=== PATIENT | male | born 1970 | race Caucasian/White ===

== ENCOUNTER 2020-10-29 15:18 | Inpatient (IN) | payer MEDICAID, OTHER ==
[~2020-10-29] VITALS: Ht 185.4 cm; Wt 160.4 kg
--- NOTE | 2020-10-29 15:38 | NUR ---
Pt able to speak in complete sentences. States he flew to [place] from [place]; "a long day of travel". Pt a-febrile but diaphoretic. cardiac monitor applied: NSR. O2 sat 90%RA: O2 applied 2LNC, will titrate PRN. Per EMS: pt had run of SVT, rate 150, while moving to [facility]; c/o CP with moving. Pt denies CP currently.
[2020-10-29] MEDS ORDERED: FURO-93 PO (15:45)
[2020-10-29] MEDS ORDERED: LISI-167 PO (15:45)
[2020-10-29] MEDS ORDERED: ATEN25TA PO (15:45)
[2020-10-29] MEDS ORDERED: CELE50CA PO (15:45)
[2020-10-29] MEDS ORDERED: ASPIRIN 81 MG TABLET CHEW PO ONE (16:30)
[2020-10-29] MEDS ORDERED: SODIUM CHLORIDE 0.9% 1,000ML IVBOLUS ONE (16:30)
[2020-10-29] MEDS ORDERED: SODIUM CHLORIDE FLUSH 10ML SYR IVF ONE (16:30)
[2020-10-29 16:57] LABS: BASOPHILS % (AUTO) 0 % (0-1); EOSINOPHILS % (AUTO) 0 % (1-7); LYMPHOCYTES % (AUTO) 16 % (22-44); MEAN CORPUSCULAR HEMOGLOBIN 29.9 pg (27.5-34.5); MEAN CORPUSCULAR HGB CONC 33.2 g/dL (33.2-36.2); MEAN PLATELET VOLUME 7.8 fL (7.4-10.4); MONOCYTES % (AUTO) 16 % (2-9); NEUTROPHILS % (AUTO) 68 % (42-75); PLATELET COUNT 214 x10^3/uL (130-400); RED BLOOD COUNT 5.41 x10^6/uL (4.38-5.82); RED CELL DISTRIBUTION WIDTH 15.9 % (9.4-14.8)
[2020-10-29 17:07] LABS: ALBUMIN 2.9 g/dL (3.4-5.0); ANION GAP 6 mmol/L (5-15); CALCIUM 8.9 mg/dL (8.5-10.1); CHLORIDE 109 mmol/L (98-107)
[2020-10-29 17:13] LABS: ALANINE AMINOTRANSFERASE 45 U/L (12-78); ALKALINE PHOSPHATASE 116 U/L (45-117); BILIRUBIN,TOTAL 0.7 mg/dL (0.2-1.0); TOTAL PROTEIN 7.5 g/dL (6.4-8.2); TROPONIN I 0.043 ng/mL (0.000-0.045)
[2020-10-29] MEDS: PLEASE ENTER WEIGHT MC SCH (17:25)
[2020-10-29] MEDS ORDERED: ASPIRIN 81 MG TABLET CHEW ONE (17:29)
--- NOTE | 2020-10-29 18:35 | NUR ---
To CT per jessica
[2020-10-29] MEDS ORDERED: OMNIPAQUE 350 MG/ML, 150 ML BOTTLE ONE (18:53)
[2020-10-29] MEDS ORDERED: CEFTRIAXONE 1,000 MG in DEXTROSE 5% 50 ML IVPB ONE (20:00)
[2020-10-29] MEDS ORDERED: AZITHROMYCIN 500 MG in SODIUM CHLORIDE 0.9% 250 ML IV ONE (20:00)
[2020-10-29] MEDS ORDERED: PHARMACY MAY ADJ FOR RENAL FX MC PRN (21:30)
[2020-10-29] MEDS ORDERED: RIVAROXABAN 15 MG TABLET PO SCH (21:32)
--- NOTE | 2020-10-29 21:36 | NUR ---
REPORT FROM [facility] AT THIS TIME TRANSFER OF CARE
[2020-10-29] MEDS: RIVAROXABAN 15 MG TABLET PO SCH (21:57)
--- NOTE | 2020-10-29 21:57 | NUR ---
US AT BEDSIDE AT THIS TIME
[2020-10-29 22:18] LABS: TROPONIN I 0.038 ng/mL (0.000-0.045)
--- NOTE | 2020-10-29 22:55 | NUR ---
report to phi boss pt ready for transfer
[2020-10-29 23:24] VITALS: BP 115/91
[2020-10-30] VITALS: BP 122/91
[2020-10-30] MEDS: PLEASE ENTER WEIGHT MC SCH (01:00)
[2020-10-30 07:13] VITALS: BP 122/87
[2020-10-30] MEDS ORDERED: AZITHROMYCIN 500 MG TABLET PO SCH (09:00)
[2020-10-30 09:03] LABS: BASOPHILS % (AUTO) 1 % (0-1); EOSINOPHILS % (AUTO) 1 % (1-7); LYMPHOCYTES % (AUTO) 20 % (22-44); MEAN CORPUSCULAR HEMOGLOBIN 29.6 pg (27.5-34.5); MEAN CORPUSCULAR HGB CONC 33.3 g/dL (33.2-36.2); MEAN PLATELET VOLUME 8.7 fL (7.4-10.4); MONOCYTES % (AUTO) 14 % (2-9); NEUTROPHILS % (AUTO) 64 % (42-75); PLATELET COUNT 230 x10^3/uL (130-400); RED BLOOD COUNT 5.07 x10^6/uL (4.38-5.82); RED CELL DISTRIBUTION WIDTH 15.8 % (9.4-14.8)
[2020-10-30 09:55] LABS: CALCIUM 8.5 mg/dL (8.5-10.1); CHLORIDE 110 mmol/L (98-107); CREATININE 1.52 mg/dL (0.7-1.3)
[2020-10-30 09:57] LABS: ANION GAP 3 mmol/L (5-15)
[2020-10-30] MEDS: CEFTRIAXONE 2 GM in DEXTROSE 5% 50 ML IVPB SCH (10:32)
[2020-10-30] MEDS: SODIUM CHLORIDE 0.9% 1,000 ML IV SCH ×2 (10:32→19:30)
[2020-10-30] MEDS: ACETAMINOPHEN 325 MG TABLET PO PRN (11:03)
[2020-10-30 12:52] VITALS: BP 137/85
[2020-10-30] MEDS: RIVAROXABAN 15 MG TABLET PO SCH (17:55)
[2020-10-30 19:21] VITALS: BP 145/93
[2020-10-31 02:47] VITALS: BP 152/87
[2020-10-31 06:01] LABS: BASOPHILS % (AUTO) 0 % (0-1); EOSINOPHILS % (AUTO) 0 % (1-7); LYMPHOCYTES % (AUTO) 12 % (22-44); MEAN CORPUSCULAR HEMOGLOBIN 29.5 pg (27.5-34.5); MEAN CORPUSCULAR HGB CONC 33.5 g/dL (33.2-36.2); MEAN PLATELET VOLUME 7.8 fL (7.4-10.4); MONOCYTES % (AUTO) 6 % (2-9); NEUTROPHILS % (AUTO) 81 % (42-75); PLATELET COUNT 158 x10^3/uL (130-400); RED BLOOD COUNT 5.02 x10^6/uL (4.38-5.82); RED CELL DISTRIBUTION WIDTH 15.7 % (9.4-14.8)
[2020-10-31 06:08] LABS: ANION GAP 8 mmol/L (5-15); CALCIUM 8.5 mg/dL (8.5-10.1); CHLORIDE 103 mmol/L (98-107)
[2020-10-31 06:09] LABS: CREATININE 0.96 mg/dL (0.7-1.3)
[2020-10-31 08:12] VITALS: BP 170/110
[2020-10-31] MEDS: DEXAMETHASONE 4 MG/ML, 1ML IVPush SCH (09:44)
[2020-10-31] MEDS: RIVAROXABAN 15 MG TABLET PO SCH ×2 (09:44→17:57)
[2020-10-31] MEDS: ACETAMINOPHEN 325 MG TABLET PO PRN (09:44)
[2020-10-31] MEDS: CEFTRIAXONE 2 GM in DEXTROSE 5% 50 ML IVPB SCH (09:44)
[2020-10-31 10:44] LABS: C-REACTIVE PROTEIN, QUANT 5.8 mg/dL (0.02-0.49)
[2020-10-31 13:10] VITALS: BP 132/96
[2020-10-31] MEDS ORDERED: REMDESIVIR 200 MG in SODIUM CHLORIDE 0.9% 250 ML IVPB ONE (15:00)
[2020-10-31] MEDS: SODIUM CHLORIDE 0.9% 1,000 ML IV SCH (16:03)
[2020-10-31] MEDS: CARVEDILOL 3.125 MG TABLET PO SCH (17:58)
[2020-10-31 20:43] VITALS: BP 146/94
[2020-11-01 01:13] VITALS: BP 140/94
[2020-11-01 05:20] LABS: CHLORIDE 108 mmol/L (98-107)
[2020-11-01 05:27] LABS: ALANINE AMINOTRANSFERASE 39 U/L (12-78); ALBUMIN 2.3 g/dL (3.4-5.0); ALKALINE PHOSPHATASE 104 U/L (45-117); ANION GAP 6 mmol/L (5-15); BILIRUBIN,TOTAL 0.5 mg/dL (0.2-1.0); CALCIUM 8.5 mg/dL (8.5-10.1); CREATININE 1.01 mg/dL (0.7-1.3); TOTAL PROTEIN 7.9 g/dL (6.4-8.2)
[2020-11-01] MEDS: CARVEDILOL 3.125 MG TABLET PO SCH ×2 (06:23→17:25)
[2020-11-01 08:47] LABS: BASOPHILS % (AUTO) 1 % (0-1); EOSINOPHILS % (AUTO) 0 % (1-7); LYMPHOCYTES % (AUTO) 7 % (22-44); MEAN CORPUSCULAR HEMOGLOBIN 29.7 pg (27.5-34.5); MEAN CORPUSCULAR HGB CONC 33.6 g/dL (33.2-36.2); MEAN PLATELET VOLUME 7.8 fL (7.4-10.4); MONOCYTES % (AUTO) 6 % (2-9); NEUTROPHILS % (AUTO) 87 % (42-75); PLATELET COUNT 180 x10^3/uL (130-400); RED BLOOD COUNT 5.24 x10^6/uL (4.38-5.82); RED CELL DISTRIBUTION WIDTH 15.5 % (9.4-14.8)
[2020-11-01 08:58] LABS: ANION GAP 6 mmol/L (5-15); CALCIUM 8.6 mg/dL (8.5-10.1); CHLORIDE 109 mmol/L (98-107); CREATININE 0.89 mg/dL (0.7-1.3)
[2020-11-01] MEDS: DEXAMETHASONE 4 MG/ML, 1ML IVPush SCH (08:59)
[2020-11-01] MEDS: CEFTRIAXONE 2 GM in DEXTROSE 5% 50 ML IVPB SCH (08:59)
[2020-11-01] MEDS: RIVAROXABAN 15 MG TABLET PO SCH ×2 (08:59→17:24)
[2020-11-01 09:05] VITALS: BP 147/89
[2020-11-01 14:53] VITALS: BP 150/94
[2020-11-01] MEDS: REMDESIVIR 100 MG in SODIUM CHLORIDE 0.9% 250 ML IVPB SCH (15:09)
[2020-11-01 17:28] VITALS: BP 141/82
[2020-11-01 20:49] VITALS: BP 119/77
[2020-11-02 01:48] VITALS: BP 130/83
[2020-11-02] MEDS ORDERED: LORazepam 1MG TABLET PO PRN (02:30)
[2020-11-02 05:20] LABS: ALBUMIN 2.5 g/dL (3.4-5.0); CALCIUM 8.3 mg/dL (8.5-10.1)
[2020-11-02 05:28] LABS: ALANINE AMINOTRANSFERASE 34 U/L (12-78); ALKALINE PHOSPHATASE 97 U/L (45-117); BILIRUBIN,TOTAL 0.4 mg/dL (0.2-1.0); CREATININE 0.94 mg/dL (0.7-1.3); TOTAL PROTEIN 7.2 g/dL (6.4-8.2)
[2020-11-02 05:31] LABS: ANION GAP 6 mmol/L (5-15); CHLORIDE 110 mmol/L (98-107)
[2020-11-02] MEDS: CARVEDILOL 3.125 MG TABLET PO SCH ×2 (06:05→17:40)
[2020-11-02] MEDS: DEXAMETHASONE 4 MG/ML, 1ML IVPush SCH (07:24)
[2020-11-02] MEDS: RIVAROXABAN 15 MG TABLET PO SCH ×2 (07:24→17:40)
[2020-11-02] MEDS: CEFTRIAXONE 2 GM in DEXTROSE 5% 50 ML IVPB SCH (07:25)
[2020-11-02 08:50] VITALS: BP 110/72
[2020-11-02] MEDS: SODIUM CHLORIDE 0.9% 1,000 ML IV SCH (10:50)
[2020-11-02 13:19] VITALS: BP 133/75
[2020-11-02] MEDS: REMDESIVIR 100 MG in SODIUM CHLORIDE 0.9% 250 ML IVPB SCH (15:15)
[2020-11-02 19:16] VITALS: BP 111/73
[2020-11-03 01:17] VITALS: BP 122/72
[2020-11-03] MEDS: SODIUM CHLORIDE 0.9% 1,000 ML IV SCH ×3 (04:51→22:26)
[2020-11-03 05:22] LABS: ALBUMIN 2.2 g/dL (3.4-5.0); ANION GAP 5 mmol/L (5-15); CALCIUM 8.4 mg/dL (8.5-10.1); CHLORIDE 110 mmol/L (98-107)
[2020-11-03 05:25] LABS: ALANINE AMINOTRANSFERASE 58 U/L (12-78); ALKALINE PHOSPHATASE 92 U/L (45-117); BILIRUBIN,TOTAL 0.4 mg/dL (0.2-1.0); TOTAL PROTEIN 7.1 g/dL (6.4-8.2)
[2020-11-03] MEDS: CARVEDILOL 3.125 MG TABLET PO SCH (05:30)
[2020-11-03] MEDS: CEFTRIAXONE 2 GM in DEXTROSE 5% 50 ML IVPB SCH (09:16)
[2020-11-03] MEDS: RIVAROXABAN 15 MG TABLET PO SCH ×2 (09:16→17:40)
[2020-11-03] MEDS: DEXAMETHASONE 4 MG/ML, 1ML IVPush SCH (09:17)
[2020-11-03 09:27] VITALS: BP 120/75
[2020-11-03 14:00] VITALS: BP 127/72
[2020-11-03] MEDS: LISINOPRIL 10 MG TABLET PO SCH (14:30)
[2020-11-03] MEDS: REMDESIVIR 100 MG in SODIUM CHLORIDE 0.9% 250 ML IVPB SCH (15:00)
[2020-11-03 22:21] VITALS: BP 122/73
[2020-11-04 02:20] VITALS: BP 117/77
[2020-11-04 05:46] LABS: ALANINE AMINOTRANSFERASE 92 U/L (12-78); ALBUMIN 2.2 g/dL (3.4-5.0); ANION GAP 4 mmol/L (5-15); CALCIUM 8.6 mg/dL (8.5-10.1); CHLORIDE 108 mmol/L (98-107); CREATININE 0.89 mg/dL (0.7-1.3)
[2020-11-04 05:48] LABS: ALKALINE PHOSPHATASE 98 U/L (45-117); BILIRUBIN,TOTAL 0.4 mg/dL (0.2-1.0); TOTAL PROTEIN 7.1 g/dL (6.4-8.2)
[2020-11-04 08:09] VITALS: BP 131/88
[2020-11-04] MEDS: RIVAROXABAN 15 MG TABLET PO SCH ×2 (08:43→17:15)
[2020-11-04] MEDS: LISINOPRIL 10 MG TABLET PO SCH (08:43)
[2020-11-04] MEDS: DEXAMETHASONE 4 MG/ML, 1ML IVPush SCH (08:44)
[2020-11-04 14:10] VITALS: BP 125/82
[2020-11-04] MEDS: REMDESIVIR 100 MG in SODIUM CHLORIDE 0.9% 250 ML IVPB SCH (15:13)
[2020-11-04 19:54] VITALS: BP 127/82
[2020-11-04] MEDS: ASCORBIC ACID 500 MG TABLET PO SCH (19:58)
[2020-11-04] MEDS: FUROSEMIDE 20 MG/2 ML IV SCH (19:58)
[2020-11-05 01:00] VITALS: BP 148/90
[2020-11-05 06:42] VITALS: BP 147/91
[2020-11-05] MEDS: RIVAROXABAN 15 MG TABLET PO SCH ×3 (08:00→17:39)
[2020-11-05] MEDS: DEXAMETHASONE 4 MG/ML, 1ML IVPush SCH ×2 (08:45→10:57)
[2020-11-05] MEDS: FUROSEMIDE 20 MG/2 ML IV SCH ×3 (08:45→17:39)
[2020-11-05] MEDS: ASCORBIC ACID 500 MG TABLET PO SCH ×2 (08:46→17:39)
[2020-11-05] MEDS: ZINC SULFATE 220 MG CAPSULE PO SCH (08:46)
[2020-11-05] MEDS: LISINOPRIL 10 MG TABLET PO SCH (08:46)
[2020-11-05] MEDS: CHOLECALCIFEROL 5,000u TAB PO SCH (08:46)
[2020-11-05 11:59] VITALS: BP 148/97
[2020-11-05 12:01] VITALS: BP 148/97
[2020-11-05 20:20] VITALS: BP 94/66
[2020-11-06 01:37] VITALS: BP 121/81
[2020-11-06 08:00] VITALS: BP 156/91
[2020-11-06] MEDS: FUROSEMIDE 20 MG/2 ML IV SCH ×2 (09:00→16:14)
[2020-11-06] MEDS: DEXAMETHASONE 4 MG/ML, 1ML IVPush SCH (09:00)
[2020-11-06] MEDS: ZINC SULFATE 220 MG CAPSULE PO SCH (09:00)
[2020-11-06] MEDS: LISINOPRIL 10 MG TABLET PO SCH (09:00)
[2020-11-06] MEDS: CHOLECALCIFEROL 5,000u TAB PO SCH (09:01)
[2020-11-06] MEDS: RIVAROXABAN 15 MG TABLET PO SCH ×2 (09:01→16:14)
[2020-11-06] MEDS: ASCORBIC ACID 500 MG TABLET PO SCH ×2 (09:01→16:14)
[2020-11-06 12:54] VITALS: BP 108/74
[2020-11-06 19:52] VITALS: BP 99/65
[2020-11-07 04:36] VITALS: BP 105/74
[2020-11-07 06:20] LABS: BASOPHILS % (AUTO) 0 % (0-1); EOSINOPHILS % (AUTO) 0 % (1-7); LYMPHOCYTES % (AUTO) 9 % (22-44); MEAN CORPUSCULAR HEMOGLOBIN 29.6 pg (27.5-34.5); MEAN CORPUSCULAR HGB CONC 33.3 g/dL (33.2-36.2); MEAN PLATELET VOLUME 7.9 fL (7.4-10.4); MONOCYTES % (AUTO) 10 % (2-9); NEUTROPHILS % (AUTO) 80 % (42-75); PLATELET COUNT 310 x10^3/uL (130-400); RED BLOOD COUNT 6.02 x10^6/uL (4.38-5.82); RED CELL DISTRIBUTION WIDTH 15.4 % (9.4-14.8)
[2020-11-07 06:40] VITALS: BP 125/85
[2020-11-07 06:44] LABS: CHLORIDE 104 mmol/L (98-107)
[2020-11-07 06:51] LABS: ALANINE AMINOTRANSFERASE 103 U/L (12-78); ALBUMIN 2.4 g/dL (3.4-5.0); ALKALINE PHOSPHATASE 109 U/L (45-117); ANION GAP 9 mmol/L (5-15); BILIRUBIN,TOTAL 0.8 mg/dL (0.2-1.0); CALCIUM 9.1 mg/dL (8.5-10.1); CREATININE 1.27 mg/dL (0.7-1.3); TOTAL PROTEIN 7.8 g/dL (6.4-8.2)
[2020-11-07] MEDS: ZINC SULFATE 220 MG CAPSULE PO SCH (08:56)
[2020-11-07] MEDS: ASCORBIC ACID 500 MG TABLET PO SCH ×2 (08:57→17:37)
[2020-11-07] MEDS: RIVAROXABAN 15 MG TABLET PO SCH ×2 (08:57→17:37)
[2020-11-07] MEDS: DEXAMETHASONE 4 MG/ML, 1ML IVPush SCH (08:57)
[2020-11-07] MEDS: LISINOPRIL 10 MG TABLET PO SCH (08:57)
[2020-11-07] MEDS: CHOLECALCIFEROL 5,000u TAB PO SCH (08:58)
[2020-11-07] MEDS: FUROSEMIDE 20 MG/2 ML IV SCH (08:58)
[2020-11-07] MEDS: ACETAMINOPHEN 325 MG TABLET PO PRN (12:51)
[2020-11-07 13:30] VITALS: BP 117/82
[2020-11-07 20:19] VITALS: BP 117/70
[2020-11-08 03:00] VITALS: BP 111/75
[2020-11-08 06:48] LABS: BASOPHILS % (AUTO) 1 % (0-1); EOSINOPHILS % (AUTO) 0 % (1-7); LYMPHOCYTES % (AUTO) 8 % (22-44); MEAN CORPUSCULAR HEMOGLOBIN 29.1 pg (27.5-34.5); MEAN PLATELET VOLUME 7.7 fL (7.4-10.4); MONOCYTES % (AUTO) 8 % (2-9); NEUTROPHILS % (AUTO) 83 % (42-75); PLATELET COUNT 340 x10^3/uL (130-400); RED BLOOD COUNT 5.89 x10^6/uL (4.38-5.82); RED CELL DISTRIBUTION WIDTH 15.7 % (9.4-14.8)
[2020-11-08 06:55] LABS: ANION GAP 7 mmol/L (5-15); CALCIUM 8.9 mg/dL (8.5-10.1); CHLORIDE 104 mmol/L (98-107); CREATININE 1.22 mg/dL (0.7-1.3)
[2020-11-08] MEDS: ZINC SULFATE 220 MG CAPSULE PO SCH (08:28)
[2020-11-08] MEDS: ASCORBIC ACID 500 MG TABLET PO SCH ×2 (08:28→17:11)
[2020-11-08] MEDS: LISINOPRIL 10 MG TABLET PO SCH (08:28)
[2020-11-08] MEDS: DEXAMETHASONE 4 MG/ML, 1ML IVPush SCH (08:28)
[2020-11-08] MEDS: RIVAROXABAN 15 MG TABLET PO SCH ×2 (08:29→17:10)
[2020-11-08] MEDS: CHOLECALCIFEROL 5,000u TAB PO SCH (08:29)
[2020-11-08 09:30] VITALS: BP 118/72
[2020-11-08 10:17] VITALS: BP 118/72
[2020-11-08 13:09] VITALS: BP 127/77
[2020-11-08 21:59] VITALS: BP 112/75
[2020-11-09 02:30] VITALS: BP 96/68
[2020-11-09 07:30] LABS: BASOPHILS % (AUTO) 0 % (0-1); EOSINOPHILS % (AUTO) 0 % (1-7); LYMPHOCYTES % (AUTO) 8 % (22-44); MEAN CORPUSCULAR HEMOGLOBIN 29.5 pg (27.5-34.5); MEAN CORPUSCULAR HGB CONC 32.7 g/dL (33.2-36.2); MEAN PLATELET VOLUME 7.7 fL (7.4-10.4); MONOCYTES % (AUTO) 7 % (2-9); NEUTROPHILS % (AUTO) 84 % (42-75); PLATELET COUNT 382 x10^3/uL (130-400); RED BLOOD COUNT 5.82 x10^6/uL (4.38-5.82); RED CELL DISTRIBUTION WIDTH 15.7 % (9.4-14.8)
[2020-11-09 07:41] LABS: ALANINE AMINOTRANSFERASE 95 U/L (12-78); ALBUMIN 2.6 g/dL (3.4-5.0); ANION GAP 8 mmol/L (5-15); CALCIUM 8.8 mg/dL (8.5-10.1); CHLORIDE 107 mmol/L (98-107); CREATININE 1.12 mg/dL (0.7-1.3)
[2020-11-09 07:44] LABS: ALKALINE PHOSPHATASE 123 U/L (45-117); BILIRUBIN,TOTAL 0.7 mg/dL (0.2-1.0); TOTAL PROTEIN 7.5 g/dL (6.4-8.2)
[2020-11-09] MEDS: RIVAROXABAN 15 MG TABLET PO SCH ×2 (08:20→17:22)
[2020-11-09] MEDS: ASCORBIC ACID 500 MG TABLET PO SCH ×2 (08:20→17:22)
[2020-11-09] MEDS: DEXAMETHASONE 4 MG/ML, 1ML IVPush SCH (08:20)
[2020-11-09] MEDS: LISINOPRIL 10 MG TABLET PO SCH (08:20)
[2020-11-09] MEDS: CHOLECALCIFEROL 5,000u TAB PO SCH (08:20)
[2020-11-09] MEDS: ZINC SULFATE 220 MG CAPSULE PO SCH (08:21)
[2020-11-09 08:24] VITALS: BP 108/79
[2020-11-09 13:52] VITALS: BP 120/82
[2020-11-09 20:14] VITALS: BP 116/72
[2020-11-10] VITALS (7 sets, daily range): BP systolic 111–165; BP diastolic 72–141
[2020-11-10] MEDS: CHOLECALCIFEROL 5,000u TAB PO SCH (08:34)
[2020-11-10] MEDS: ASCORBIC ACID 500 MG TABLET PO SCH ×2 (08:34→17:41)
[2020-11-10] MEDS: LISINOPRIL 10 MG TABLET PO SCH (08:35)
[2020-11-10] MEDS: ZINC SULFATE 220 MG CAPSULE PO SCH (08:36)
[2020-11-10] MEDS: RIVAROXABAN 15 MG TABLET PO SCH ×2 (08:36→17:42)
[2020-11-10] MEDS: DEXAMETHASONE 4 MG/ML, 1ML IVPush SCH (08:36)
[2020-11-10] MEDS: FUROSEMIDE 20 MG TABLET PO SCH ×2 (14:34→17:42)
[2020-11-11 02:03] VITALS: BP 163/75
[2020-11-11 07:56] VITALS: BP 162/95
[2020-11-11] MEDS: RIVAROXABAN 15 MG TABLET PO SCH ×2 (10:00→15:12)
[2020-11-11] MEDS: LISINOPRIL 10 MG TABLET PO SCH (10:01)
[2020-11-11] MEDS: CHOLECALCIFEROL 5,000u TAB PO SCH (10:01)
[2020-11-11] MEDS: FUROSEMIDE 20 MG TABLET PO SCH ×2 (10:01→15:12)
[2020-11-11] MEDS: ZINC SULFATE 220 MG CAPSULE PO SCH (10:01)
[2020-11-11] MEDS: ASCORBIC ACID 500 MG TABLET PO SCH ×2 (10:01→15:11)
[2020-11-11 13:54] VITALS: BP 116/83
[2020-11-11] MEDS: AMLODIPINE 5 MG TABLET PO SCH (15:10)
[2020-11-11] MEDS ORDERED: FURO20TA3 PO (16:11)
[2020-11-11] MEDS ORDERED: AMLO-150 PO (16:11)
[2020-11-11] MEDS ORDERED: CHOL500045 PO (16:11)
[2020-11-11] MEDS ORDERED: LISI-167 PO (16:11)
[2020-11-11] MEDS ORDERED: ASCO500T9 PO (16:11)
[2020-11-11] MEDS ORDERED: RIVA15TA PO (16:11)
[2020-11-11 19:52] VITALS: BP 107/69
[2020-11-12 01:26] VITALS: BP 110/55
[2020-11-12] MEDS ORDERED: LOPERAMIDE 2 MG CAPSULE PO ONE (01:30)
[2020-11-12 07:54] VITALS: BP 121/68
[2020-11-12] MEDS: FUROSEMIDE 20 MG TABLET PO SCH ×2 (10:03→19:59)
[2020-11-12] MEDS: AMLODIPINE 5 MG TABLET PO SCH (10:03)
[2020-11-12] MEDS: RIVAROXABAN 15 MG TABLET PO SCH ×2 (10:03→19:59)
[2020-11-12] MEDS: ASCORBIC ACID 500 MG TABLET PO SCH ×2 (10:03→19:58)
[2020-11-12] MEDS: ZINC SULFATE 220 MG CAPSULE PO SCH (10:04)
[2020-11-12] MEDS: LISINOPRIL 10 MG TABLET PO SCH (10:05)
[2020-11-12] MEDS: CHOLECALCIFEROL 5,000u TAB PO SCH (10:05)
[2020-11-12 12:11] VITALS: BP 111/71
[2020-11-12 12:42] LABS: BASOPHILS % (AUTO) 0 % (0-1); EOSINOPHILS % (AUTO) 1 % (1-7); LYMPHOCYTES % (AUTO) 10 % (22-44); MEAN CORPUSCULAR HEMOGLOBIN 29.6 pg (27.5-34.5); MEAN CORPUSCULAR HGB CONC 33.2 g/dL (33.2-36.2); MEAN PLATELET VOLUME 7.7 fL (7.4-10.4); MONOCYTES % (AUTO) 9 % (2-9); NEUTROPHILS % (AUTO) 80 % (42-75); PLATELET COUNT 317 x10^3/uL (130-400); RED BLOOD COUNT 5.37 x10^6/uL (4.38-5.82); RED CELL DISTRIBUTION WIDTH 16.1 % (9.4-14.8)
[2020-11-12 12:52] LABS: ALANINE AMINOTRANSFERASE 91 U/L (12-78); ALBUMIN 2.5 g/dL (3.4-5.0); ANION GAP 7 mmol/L (5-15); CALCIUM 8.3 mg/dL (8.5-10.1); CHLORIDE 106 mmol/L (98-107); CREATININE 1.24 mg/dL (0.7-1.3)
[2020-11-12 12:54] LABS: ALKALINE PHOSPHATASE 115 U/L (45-117); BILIRUBIN,TOTAL 0.8 mg/dL (0.2-1.0); TOTAL PROTEIN 7.1 g/dL (6.4-8.2)
[2020-11-12 14:32] VITALS: BP 127/63
[2020-11-12 19:16] VITALS: BP 104/72
== END 2020-11-12 20:20 | disposition home or self-care (01) | DRG 720 ==
LOC: ED 21:28 → EDIP 21:48 → 5SO 23:16 → 3N 11-09 19:56
PROVIDERS: ADMIT Internal Medicine; ATTEND Hospitalist
PROC: XW033E5 Introduction of Remdesivir Anti-infective into Peripheral Vein, Percutaneous Approach, New Technology Group 5 (ICD-10-PCS; principal; 2020-10-31)
PROC: 5A09357 Assistance with Respiratory Ventilation, Less than 24 Consecutive Hours, Continuous Positive Airway Pressure (ICD-10-PCS; 2020-11-01)
PROC: 5A0945A Assistance with Respiratory Ventilation, 24-96 Consecutive Hours, High Flow/Velocity Cannula (ICD-10-PCS; 2020-11-05)
DX: A41.9 Sepsis, unspecified organism (principal); I26.99 Other pulmonary embolism without acute cor pulmonale; J12.82 Pneumonia due to coronavirus disease 2019; J96.01 Acute respiratory failure with hypoxia; I50.31 Acute diastolic (congestive) heart failure; U07.1 COVID-19; E46 Unspecified protein-calorie malnutrition; E66.01 Morbid (severe) obesity due to excess calories; G47.33 Obstructive sleep apnea (adult) (pediatric); I11.0 Hypertensive heart disease with heart failure; I44.1 Atrioventricular block, second degree; R07.2 Precordial pain; M17.0 Bilateral primary osteoarthritis of knee; I47.1 Supraventricular tachycardia; J45.909 Unspecified asthma, uncomplicated; N17.9 Acute kidney failure, unspecified; Z79.899 Other long term (current) drug therapy; Z68.43 Body mass index [BMI] 50.0-59.9, adult; Z88.0 Allergy status to penicillin; Z88.5 Allergy status to narcotic agent; Z82.3 Family history of stroke; Z82.49 Family history of ischemic heart disease and other diseases of the circulatory system; Z87.11 Personal history of peptic ulcer disease; Z87.891 Personal history of nicotine dependence; Z91.14 Patient's other noncompliance with medication regimen; Z71.3 Dietary counseling and surveillance
CPT/HCPCS: 36415; 36600; 71045; 71275; 80048; 80053; 82728; 82803; 83605; 83615; 83735; 83880; 84100; 84443; 84484; 85025; 85379; 86140; 93005; 93970; 99291; G0378; J0456; J0696; J1100; Q9957; Q9967; U0005; C8924; J1940; J7030; J7050; U0003